=== PATIENT | male | born 2000 | race Caucasian/White ===

== ENCOUNTER 2018-03-06 05:51 | Emergency (ER) | payer OTHER ==
[~2018-03-06] VITALS: Ht 182.9 cm; Wt 90.9 kg
[2018-03-06 05:55] VITALS: TEMP 97.3
[2018-03-06] MEDS ORDERED: EPIPEN 2-PAK1 MG/ML IM (06:30)
[2018-03-06] MEDS ORDERED: PREDNISONE20 MG PO (06:30)
[2018-03-06 07:39] VITALS: BP 108/60; PULSE 71
== END 2018-03-06 07:35 | disposition home or self-care (01) ==
LOC: COL.ER 05:51
DX: L50.9 Urticaria, unspecified (principal); F17.200 Nicotine dependence, unspecified, uncomplicated
CPT/HCPCS: J1200; J2930; J7030

== ENCOUNTER 2018-03-26 20:58 | Emergency (ER) | payer OTHER ==
[~2018-03-26] VITALS: Ht 182.9 cm; Wt 106.8 kg
[~2018-03-26 20:58] MED LIST: EPIPEN 2-PAK1 MG/ML IM; PREDNISONE20 MG PO
[2018-03-26 22:07] VITALS: BP 125/90; PULSE 81; TEMP 98.1
== END 2018-03-26 22:08 | disposition home or self-care (01) ==
LOC: COL.ER 20:58
DX: K64.4 Residual hemorrhoidal skin tags (principal); F17.210 Nicotine dependence, cigarettes, uncomplicated